=== PATIENT | male | born 1950 | race Caucasian/White ===

== ENCOUNTER 2022-05-16 11:12 | Day surgery (SDC) | payer OTHER ==
[2022-05-16] VITALS (10 sets, daily range): BP systolic 90–156; BP diastolic 52–91
[~2022-05-16] VITALS: Ht 162.6 cm; Wt 78.9 kg
[2022-05-16] MEDS ORDERED: normal saline 1,000 ML IV SCH (11:35)
[2022-05-16] MEDS ORDERED: LORazepam 0.5 MG tablet PO PRN (11:35)
[2022-05-16] MEDS ORDERED: diphenhydrAMINE 25mg capsule PO PRN (11:35)
[2022-05-16] MEDS ORDERED: AMA1T PO (11:36)
[2022-05-16] MEDS ORDERED: CARV6.253 PO (11:36)
[2022-05-16] MEDS ORDERED: SEMA1PEN3 INJ (11:36)
[2022-05-16] MEDS ORDERED: ATOR40TA72 PO (11:36)
[2022-05-16] MEDS ORDERED: CLOP75TA34 PO (11:36)
[2022-05-16] MEDS ORDERED: EMPA1TAB21 PO (11:36)
[2022-05-16] MEDS ORDERED: LISI40TA13 PO (11:36)
[2022-05-16] MEDS ORDERED: OFLO5DRO3 EACHEYE (11:36)
[2022-05-16] MEDS ORDERED: verapamil 2.5 mg/ml inj IV ONE (12:40)
[2022-05-16] MEDS ORDERED: iohexol 350MG/ML 100ml bottle IV ONE (12:40)
[2022-05-16] MEDS ORDERED: midazolam 1 mg/ML 2ml injection ONE (12:40)
[2022-05-16] MEDS ORDERED: nitroGLYCERIN-Tridil 50MG/D5W 250 ML IV ONE (12:40)
[2022-05-16] MEDS ORDERED: fentaNYL/PF 50MCG/1 ML 2ML syringe ONE (12:40)
[2022-05-16] MEDS ORDERED: LIDOcaine 1% (10mg/ml) 2ml vial ONE (12:40)
[2022-05-16] MEDS ORDERED: heparin 1,000unit/ml 10ml vial 10 ML ONE (12:40)
[2022-05-16 13:19] LABS: ISTAT HGB ART 11.9 g/dl (14.0-17.9); ISTAT Hct ART 35 %PCV (42-52); ISTAT O2 SATURATION ARTERIAL 93 % (95-98); ISTAT SOURCE ART
[2022-05-16] MEDS ORDERED: HYDROcodone/acetaminophen 5mg/325mg tablet PO PRN (14:10)
[2022-05-16] MEDS ORDERED: HYDROcodone/acetaminophen 10/325mg tab PO PRN (14:10)
[2022-05-16 15:49] LABS: ISTAT Hct MIX 38 %PCV (42-52); ISTAT O2 SATURATION MIX VENOUS 75 % (60-80); ISTAT SOURCE VEN
== END 2022-05-16 17:15 | disposition home or self-care (01) ==
LOC: SSTAY O 11:12
PROVIDERS: ATTEND Student in an Organized Health Care Education/Training Program
DX: I35.0 Nonrheumatic aortic (valve) stenosis (principal); I10 Essential (primary) hypertension; E78.5 Hyperlipidemia, unspecified; E11.9 Type 2 diabetes mellitus without complications; I25.10 Atherosclerotic heart disease of native coronary artery without angina pectoris; I25.2 Old myocardial infarction; Z79.899 Other long term (current) drug therapy; Z98.890 Other specified postprocedural states
CPT/HCPCS: 82803; 82948; 85014; 93005; 93456; 99152; A6258; C1769; C1894; J1644; J2250; J3010; J3490; J7030; Q0163; Q9967; A6402; C1751

== ENCOUNTER 2022-06-28 10:03 | Outpatient (CLI) | payer OTHER ==
[~2022-06-28 10:03] MED LIST: AMA1T PO; ATOR40TA72 PO; CARV6.253 PO; CLOP75TA34 PO; EMPA1TAB21 PO; LISI40TA13 PO; OFLO5DRO3 EACHEYE; SEMA1PEN3 INJ
[2022-06-28 11:11] LABS: BASOPHILS % (AUTO) 0.2 % (0-1); EOSINOPHILS % (AUTO) 0.2 % (0-6); HEMATOCRIT 41.3 % (42.0-52.0); HEMOGLOBIN 13.8 g/dl (14.0-17.9); LYMPHOCYTES # (AUTO) 0.5 X10'3 (1.1-4.8); MEAN CORPUSCULAR HEMOGLOBIN 31.3 PG (27.0-31.0); MEAN CORPUSCULAR HGB CONC 33.3 g/dL (33.0-36.5); MEAN PLATELET VOLUME 7.6 FL (7.4-10.4); MONOCYTES # (AUTO) 0.2 X10'3 (0-0.9); MONOCYTES % (AUTO) 2.5 % (2-12); NEUTROPHILS # (AUTO) 6.3 X10'3 (1.8-7.7); NEUTROPHILS % (AUTO) 90.1 % (42-75); PLATELET COUNT 245 X10'3 (140-440); RED BLOOD COUNT 4.39 X10'6 (4.70-6.10); RED CELL DISTRIBUTION WIDTH 13.5 % (11.5-14.5)
[2022-06-28 11:15] LABS: CLARITY,URINE CLEAR (Clear); COLOR,URINE YELLOW (Yellow); GLUCOSE, URINE >=1000 mg/dl (Neg); KETONES,URINE 15 mg/dl (Neg); LEUKOCYTE ESTERASE ,URINE NEGATIVE (Neg); NITRITES, URINE NEGATIVE (Neg); OCCULT BLOOD,URINE NEGATIVE (Neg); PROTEIN,URINE NEGATIVE (Neg); UROBILINOGEN,URINE 0.2 E.U/dL (0.2-1.0)
[2022-06-28 11:21] LABS: UA COLLECTION TYPE VOIDED
[2022-06-28 11:23] LABS: APTT 27 SECONDS (22-32)
[2022-06-28 11:25] LABS: BACTERIA,URINE NONE SEEN /HPF (Neg); MUCUS STRANDS FEW /LPF (Neg); RBC,URINE NONE SEEN /HPF (0-2); SQUAMOUS EPITHELIAL CELL,UR FEW /LPF (FEW); WBC,URINE 0-4 /HPF (0-4)
[2022-06-28 11:26] LABS: ALANINE AMINOTRANSFERASE 24 U/L (12-78); ALBUMIN 3.8 G/DL (3.4-5.0); ALBUMIN/GLOBULIN RATIO 1.1 (1.1-1.5); ALKALINE PHOSPHATASE 66 IU/L (46-116); ANION GAP 8 (8-16); ASPARTATE AMINO TRANSFERASE 18 U/L (10-37); BLOOD UREA NITROGEN 21 MG/DL (7-18); BUN/CREATININE RATIO 27.6 (10.0-20.0); CALCIUM 9.5 MG/DL (8.5-10.1); CHLORIDE 105 MMOL/L (99-107); CREATININE 0.76 MG/DL (0.60-1.10); GLUCOSE 222 MG/DL (70-104); POTASSIUM 4.4 MMOL/L (3.5-5.1); SODIUM 141 MMOL/L (135-145); TOTAL CARBON DIOXIDE 28.3 MMOL/L (24-32); TOTAL PROTEIN 7.2 G/DL (6.4-8.2); eGFR > 90 ML/MIN
[2022-06-28] MEDS ORDERED: IODIXANOL 320 MG/ML INFUS..BTL 100ML IV ONE (11:28)
== END 2022-06-28 23:59 | disposition home or self-care (01) ==
LOC: RAD 10:03
PROVIDERS: ATTEND Internal Medicine Cardiovascular Disease
DX: I25.10 Atherosclerotic heart disease of native coronary artery without angina pectoris (principal); I35.0 Nonrheumatic aortic (valve) stenosis; R06.02 Shortness of breath; I65.29 Occlusion and stenosis of unspecified carotid artery; I70.0 Atherosclerosis of aorta; N28.1 Cyst of kidney, acquired; K57.30 Diverticulosis of large intestine without perforation or abscess without bleeding; K59.00 Constipation, unspecified; K40.20 Bilateral inguinal hernia, without obstruction or gangrene, not specified as recurrent
CPT/HCPCS: 36415; 71046; 71275; 74174; 80053; 81001; 85025; 85610; 85730; 94010; 94727; 94729; J3490; Q9967

== ENCOUNTER → 2022-09-11 | Outpatient (CLI) | payer OTHER, MEDICARE ==
[~2022-09-11] MED LIST changes: +ASPI81TA53 PO; -CLOP75TA34 PO; -OFLO5DRO3 EACHEYE; +OZEMPIC 4 MG/3 ML SQ; -SEMA1PEN3 INJ
== END | disposition home or self-care (01) ==
LOC: CARD DIAG 11:11
PROVIDERS: ATTEND Internal Medicine Cardiovascular Disease
DX: Z48.812 Encounter for surgical aftercare following surgery on the circulatory system (principal); I08.8 Other rheumatic multiple valve diseases; Z95.2 Presence of prosthetic heart valve
CPT/HCPCS: 93005; 93306